=== PATIENT | male | born 1940 | race Caucasian/White ===

== ENCOUNTER 2016-10-22 06:12 | Observation (INO) | payer OTHER, MEDICARE ==
[~2016-10-22] VITALS: Ht 172.7 cm; Wt 98.4 kg
[2016-10-22 14:43] VITALS: BP 118/70
--- NOTE | 2016-10-22 14:45 | NUR ---
NURSING NOTE: PT ARRIVED TO FLOOR FROM PACU S/P R ROTATOR CUFF SURGERY, PT AWAKE, A/OX3, 2L NC DENIES DISTRESS. INSENTIVE SPIR GIVEN, PT DENIES PAIN. +CMS, SLING TO R ARM, DTV BY 1700PM. IVF PER MD ORDER. VITALS OBNTAIND AND STABLE. REPORT GIVEN TO NEXT SHIFT RN.
[2016-10-22 16:45] VITALS: BP 138/64
[2016-10-22] MEDS ORDERED: ASPIRIN EC81 M1 PO (17:05)
[2016-10-22] MEDS ORDERED: LIPITOR40 M1 PO (17:06)
[2016-10-22] MEDS ORDERED: OMEPRAZOLE20 M2 PO (17:06)
[2016-10-22] MEDS ORDERED: OCUVITE SOFTGE1 EACH PO (17:06)
[2016-10-22] MEDS ORDERED: ALTACE10 M2 PO (17:07)
[2016-10-22] MEDS ORDERED: ZETIA10 M1 PO (17:07)
[2016-10-22] MEDS ORDERED: B COMPLEX1 EACH PO (17:07)
[2016-10-22] MEDS ORDERED: DIALYVITE 8000.8 MG PO (17:08)
[2016-10-22] MEDS ORDERED: TOPROL XL100 M1 PO (17:08)
--- NOTE | 2016-10-22 17:15 | Admission Core Measures ---
Admission Meds I reviewed the following Meds: Current Medications Sig/Mimi Start time Last Medication Dose Stop Time Status Admin Aspirin 81 MG BID 10/22 2200 AC (Aspirin) Atorvastatin Calcium 40 MG QPM 10/22 2200 AC (Lipitor) Ezetimibe 10 MG DAILY 10/23 1000 AC (Zetia) Heparin Sodium 5,000 UNIT Q8 10/22 1400 AC (Porcine) Lisinopril 40 MG DAILY 10/23 1000 AC (Prinivil) Metoprolol Succinate 100 MG DAILY 10/23 1000 AC (Toprol Xl) Omeprazole 20 MG DAILY 10/23 1000 AC (Prilosec) Ondansetron HCl 4 MG Q6P PRN 10/22 1500 AC (Zofran) Tramadol HCl 50 MG Q6-PRN PRN 10/22 1500 AC (Ultram) Tramadol HCl 100 MG Q6P PRN 10/22 1500 AC (Ultram) Acute Coronary Syndrome Inclusion Criteria ACS Diagnosis No Inpatient Core Measures LDL Reminder: If No, please order W/I first 24hr of stay Congestive Heart Failure Inclusion Criteria CHF Diagnosis No Cerebrovascular accident Inclusion Criteria CVA/TIA Diagnosis No Inpatient Core Measures Bedside Swallow Eval Reminder: If BSE failed, place ST order Antithrombotic Reminder: Order Antithrombotic Medication by end of day 2 Antithrombotic Reminder: Document Reason Antithrombotic Not ordered by end of day 2 AFIB/Flutter Reminder: If Present, add to problem list AFIB/Flutter Reminder: Order Anticoag Medication for pts with AFIB/Flutter Atherosclerosis Reminder: If Present, add to problem list LDL Reminder: If No, please order W/I first 24hr of stay PT Order Reminder: If No, please order Venous thromboembolism Inpatient Core Measures VTE Risk Factors: Age > 40, Surgery No [facility] VTE prophylaxis d/t No contraindications No VTE Pharm Prophylaxis d/t No contraindications Inclusion Criteria - Per Current guidelines, there needs to be overlap - treatment for the first 5 days of Warfarin therapy. - Parenteral Anticoagulation (IV or SC) needs to be - given along with Warfarin therapy. VTE Diagnosis No VTE Type NONE VTE Confirmed by (Test) NONE Problem List As ranked by this Provider includes Assessment & Plan 1. Rotator cuff tear arthropathy of right shoulder HOME MEDS Home Med List Aspirin (Ecotrin*) 81 MG TABLET. 1 TAB PO DAILY HEART HEALTH (Reported) Atorvastatin Calcium (Lipitor) 40 MG TABLET 1 TAB PO QPM CHOLESTEROL ( Reported) Ezetimibe (Zetia) 10 MG TABLET 1 TAB PO DAILY CHOLESTEROL (Reported) Folic Acid/Vit Bcomp,C (Dialyvite 800 Tablet) 0.8 MG TABLET 1 TAB PO DAILY SUPPLEMENT (Reported) Metoprolol Succ XL (Toprol XL) 100 MG TAB.ER.24H 1 TAB PO DAILY HEART ( Reported) Omeprazole 20 MG CAPSULE.DR 1 CAP PO DAILY GI PROTECTION (Reported) Ramipril (Altace) 10 MG CAPSULE 1 CAP PO DAILY HYPERTENSION (Reported) Vit C/Vit E/Lutein/Min/[place]-3 (Ocuvite Softgel) 150 MG-30 UNIT-5 MG-150 MG CAPSULE 1 TAB PO DAILY VITAMIN SUPPLEMENT (Reported) Vitamin B Complex (B Complex) 1 EACH TABLET 1 TAB PO DAILY SUPPLEMENT ( Reported)
--- NOTE | 2016-10-22 17:24 | Patient Discharge Instructions ---
Discharge Instructions General Discharge Information You were seen/treated for: Right shoulder pain You had these procedures: Right shoulder arthroscopy with subacromial decompression and rotator cuff repair Watch for these problems: Increasing pain, redness, warmth, swelling. Drainage of any type from incisions. Inability to bear weight with right arm, numbness or tingling to right hand and arm. Fever greater than 101.5 Do not soak the wound: Yes No bath, but you may shower: Yes Other wound care: Keep wound clean and dry Special Instructions: Where shoulder immobilizer until otherwise indicated by Dr. Dixon, you may remove the shoulder immobilizer when in the shower. Diet Continue normal diet: Yes Recommended Diet: Heart Healthy Additional DIET Information: Advance as tolerated Activity Full Activity/No Limits: No Activity Self Limited: Yes Pounds, do NOT lift more than: 0 Additional ACTIVITY Info: Avoid lifting with right arm, please discuss any range of motion exercises with Dr. Dixon prior to beginning them. Acute Coronary Syndrome Inclusion Criteria At DC or during hospital stay patient has or had the following: ACS DIAGNOSIS No Discharge Core Measures Meds if any: Prescribed or Continued at Discharge Meds if any: NOT Prescribed or Continued at Discharge Congestive Heart Failure Inclusion Criteria At DC or during hospital stay patient has or had the following: CHF DIAGNOSIS No Discharge Core Measures Meds if any: Prescribed or Continued at Discharge Meds if any: NOT Prescribed or Continued at Discharge Cerebrovascular accident Inclusion Criteria At DC or during hospital stay patient has or had the following: CVA/TIA Diagnosis No Discharge Core Measures Meds if any: Prescribed or Continued at Discharge Meds if any: NOT Prescribed or Continued at Discharge Venous thromboembolism Inclusion Criteria VTE Diagnosis No VTE Type NONE VTE Confirmed by (Test) NONE Discharge Core Measures - Per Current guidelines, there needs to be overlap - treatment for the first 5 days of Warfarin therapy. - If discharged on Warfarin prior to 5 days of - overlap therapy, the patient will need to be - assessed for post discharge needs including - *Post discharge parental anticoagulation - *Warfarin and/or parental anticoagulation education - *Follow up date to check INR post discharge At least 5 days overlap therapy as Inpatient No Meds if any: Prescribed or Continued at Discharge Note: Overlap Therapy is Warfarin and Anticoagulant Meds if any: NOT Prescribed or Continued at Discharge
--- NOTE | 2016-10-22 17:30 | PN- Orthopedic ---
See Addendum Subjective Subjective: Patient received a general surgical floor status post right shoulder arthroscopy with repair of rotator cuff tear as well as a subacromial decompression. He tolerated the procedure well. Presently he is without discomfort. He specifically denies chest pain, shortness of breath, difficulty breathing. He denies nausea and vomiting. Objective Vital Signs and I&Os Vital Signs Date Time Temp Pulse Resp B/P Pulse O2 O2 Flow FiO2 Ox Delivery Rate 10/22 1445 95 Nasal 2.0L Cannula 10/22 1443 98.0 80 20 118/70 95 Nasal 2.0L Cannula Intake & Output 10/22 1600 10/22 0800 10/22 0000 10/21 1600 10/21 0800 10/21 0000 Intake Total Output Total 300 Balance -300 Output, Urine 300 Patient 217 lb Weight Physical Exam: General: Alert and oriented 3, no acute distress Cardiac: Regular rhythm and rate, systolic murmur auscultated Pulmonary: Bilateral lung sounds clear to auscultation Abdomen: Soft and nontender, nondistended, positive bowel sounds Extremities: Moves all extremities, distal sensations grossly intact. 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 Capillary refill brisk to all 5 fingers on right hand, palpable radial and ulnar pulses. Bilateral calves soft and nontender. Skin integrity: Swelling and abrasion noted above bilateral eyebrows, clinical correlation suggested its associated with positioning intraoperatively. Surgical site: Right shoulder dressing dry and intact. Shoulder immobilizer in place. Assessment/Plan Assessment/Plan This is a 75-year-old male postoperative day 0 status post right shoulder arthroscopy, subacromial decompression, rotator cuff repair. Past medical history is significant for coronary artery bypass surgery as well as hypertension, and hyperlipidemia. Patient has a known intolerance of Percocet, stating that the medication causes hallucinations. He will be hospitalized tonight for pain management with nonnarcotic medications. -Tramadol 50-100 mg every 6 hours when necessary pain, dosage not to exceed 300 mg in the 24 hour period -DVT prophylaxis to include subcutaneous heparin, baby aspirin twice daily, Alps , teds at discharge. -Antibiotic prophylaxis to include Ancef 2 g to be given every 8 hours 2 additional doses -Diet is heart healthy, advance as tolerated -Activity: No physical therapy needed for right upper extremity while in-house and patient may ambulate as desired, patient to be in shoulder immobilizer at all times. -Patient to continue all home meds, the only exception is increasing the frequency of his baby aspirin from once daily to twice daily -Anticipate discharge to home tomorrow morning -Will discuss with Dr. Dixon Core Measures/Miscellaneous Venous Thromboembolism VTE Risk Factors: Age > 40, Surgery VTE Contraindications: No Contraindications VTE Diagnosis: No Beta Mary Is Beta Mary a Home Med? Yes If Yes, Was This Ordered Today? Yes Antibiotics Is Patient on Antibiotics? Yes If Yes: prophylaxis
--- NOTE | 2016-10-22 17:33 | Discharge Summary ---
Visit Information Visit Dates Admission Date: 10/22/16 Discharge Date: 10/23/2016 Hospital Course Course Attending Physician: RUBIA DIXON MD Primary Care Physician: BECKY NO,[facility] Course: Patient was admitted to the hospital on October 22 2016 following an elective right shoulder arthroscopy with repair of rotator cuff, and subacromial decompression. He tolerated the procedure well. He was transferred to a general surgical floor. His diet was advanced and tolerated. His vital signs remained stable and within normal limits. He was able to void spontaneously. His pain was well controlled. He was deemed appropriate for discharge on postoperative day 1. Allergies: Coded Allergies: acetaminophen (From PERCOCET) (Intermediate, 10/15/16) oxycodone (From PERCOCET) (Intermediate, 10/15/16) NSAIDS (Non-Steroidal Anti-Inflamma (Intermediate, 10/15/16) Disposition Summary Disposition Principal Diagnosis: Right shoulder rotator cuff tear Additional Diagnosis: None Discharge Disposition: home or self care Discharge Instructions General Discharge Information Code Status: Full Code Patient's Diet: Heart healthy, advance as tolerated Patient's Activity: No lifting with right arm, shoulder immobilizer at all times except showering Follow-Up Instructions/Appts: Please contact Dr. Dixon's office to arrange and/or confirm follow-up appointments to be seen within 1-2 weeks postoperatively. Start taking the following new medications: Tramadol HCl (Tramadol HCl) 50 MG TABLET 1 Tablet ORAL EVERY SIX HOURS NEEDED as needed for PAIN Qty = 30 No Refills Comments: Last Taken:10/23/16 Time: 0930AM Aspirin (Ecotrin*) 81 MG TABLET. 1 Tablet ORAL TWICE DAILY Qty = 60 No Refills Comments: Last Taken:10/23/16 Time: 0900AM Medications at Discharge Discharge Medications: Stop taking the following medications: Aspirin (Ecotrin*) 81 MG TABLET. ORAL DAILY Continue taking these medications: Atorvastatin Calcium (Lipitor) 40 MG TABLET 1 Tablet ORAL Every night Comments: Last Taken:10/22/16 Time: 2100PM Vit C/Vit E/Lutein/Min/[place]-3 (Ocuvite Softgel) 150 MG-30 UNIT-5 MG-150 MG CAPSULE 1 Tablet ORAL DAILY Comments: NOT GIVEN IN HOSPITAL Omeprazole (Omeprazole) 20 MG CAPSULE. 1 Capsule ORAL DAILY Comments: Last Taken: 10/23/16 Time: 0900AM Ramipril (Altace) 10 MG CAPSULE 1 Capsule ORAL DAILY Comments: NOT GIVEN IN HOSPITAL Ezetimibe (Zetia) 10 MG TABLET 1 Tablet ORAL DAILY Comments: Last Taken: 10/23/16 Time: 0900AM Vitamin B Complex (B Complex) 1 EACH TABLET 1 Tablet ORAL DAILY Comments: NOT GIVEN IN HOSPITAL Folic Acid/Vit Bcomp,C (Dialyvite 800 Tablet) 0.8 MG TABLET 1 Tablet ORAL DAILY Comments: NOT GIVEN IN HOSPITAL Metoprolol Succ XL (Toprol XL) 100 MG TAB.ER.24H 1 Tablet ORAL DAILY Comments: Last Taken: 10/23/16 Time: 0900AM Start taking the following new medications: Tramadol HCl (Tramadol HCl) 50 MG TABLET 1 Tablet ORAL EVERY SIX HOURS NEEDED as needed for PAIN Qty = 30 No Refills Comments: Last Taken:10/23/16 Time: 0930AM Aspirin (Ecotrin*) 81 MG TABLET.DR 1 Tablet ORAL TWICE DAILY Qty = 60 No Refills Comments: Last Taken:10/23/16 Time: 0900AM Copies To: RUBIA DIXON MD Attending Review Statement Documenting Attending: RUBIA DIXON MD
[2016-10-22 18:59] VITALS: BP 146/66
[2016-10-22 22:29] VITALS: BP 128/84
[2016-10-23] MEDS ORDERED: TRAMADOL HCL50 M1 PO (07:23)
[2016-10-23 07:32] VITALS: BP 142/80
--- NOTE | 2016-10-23 07:34 | PN- Orthopedic ---
See Addendum Subjective Subjective: NAEO. Patient without c/o. States he has no pain at the moment. He has some mild tingling in his right fingers. Tolerating PO without n/v. Has not been OOB. Denies CP/SOB. Objective Vital Signs and I&Os Vital Signs Date Time Temp Pulse Resp B/P Pulse O2 O2 Flow FiO2 Ox Delivery Rate 10/23 0732 97.7 79 20 142/80 95 Nasal 2.0L Cannula 10/23 0000 Nasal 2.0L Cannula 10/22 2229 97.9 88 18 128/84 95 10/22 1859 98.2 95 20 146/66 94 10/22 1645 98.1 89 20 138/64 95 Nasal 2.0L Cannula 10/22 1600 Nasal 2.0L Cannula 10/22 1445 95 Nasal 2.0L Cannula 10/22 1443 98.0 80 20 118/70 95 Nasal 2.0L Cannula Intake & Output 10/23 0800 10/23 0000 10/22 1600 10/22 0800 10/22 0000 10/21 1600 Intake Total 1400 Output Total 850 300 Balance 550 -300 Intake, IV 600 Intake, Oral 800 Output, Urine 850 300 Patient 217 lb Weight Physical Exam: General: NAD, comfortable, A&Ox3 Chest: Good air movement, mild bilateral expiratory wheezes. RRR. Abdomen: soft, nontender, nondistended. Ext: Right shoulder dressing C/D/I. Right arm immobilizer in place. No calve swelling/TTP, neurovascularly intact bilateral lower extremities Current Medications: Current Medications Sig/Mimi Start time Last Medication Dose Route Stop Time Status Admin Aspirin 81 MG BID 10/22 2199 AC 10/22 PO 210 Atorvastatin Calcium 40 MG QPM 10/22 2200 AC 10/22 PO 210 Cefazolin Sodium 2 GM IQ8 10/22 1600 DC 10/23 N/A 1 UNIT IV 10/23 0029 0033 Cefazolin Sodium 2,000 MG ONCE 10/22 0000 DC IV 10/22 2359 Dextrose/Sodium 1,000 ML .[id number] 10/22 1500 AC 10/22 Chloride IV 2337 Ezetimibe 10 MG DAILY 10/23 1000 AC PO Heparin Sodium 5,000 UNIT Q8 10/22 1400 AC 10/23 (Porcine) SC 0639 Lisinopril 40 MG DAILY 10/23 1000 AC PO Metoprolol Succinate 100 MG DAILY 10/23 1000 AC PO Omeprazole 20 MG DAILY 10/23 1000 AC PO Ondansetron HCl 4 MG Q6P PRN 10/22 1500 AC IV Tramadol HCl 50 MG Q6-PRN PRN 10/22 1500 AC 10/22 PO 2109 Tramadol HCl 100 MG Q6P PRN 10/22 1500 AC PO Assessment/Plan Assessment/Plan 75yo M POD#1 s/p right rotator cuff repair. AVSS, patient stable and pain well controlled. - Pain control - OOB with PT, OT - NWB RUE - ALPS - DVT ppx - I/O's - DC if cleared by PT - Will d/w attending Core Measures/Miscellaneous Venous Thromboembolism VTE Risk Factors: Age > 40, Surgery VTE Contraindications: No Contraindications VTE Diagnosis: No VTE Type: NONE VTE Confirmed by (Test): NONE Beta Mary Is Beta Mary a Home Med? Yes If Yes, Was This Ordered Today? Yes Antibiotics Is Patient on Antibiotics? No
[2016-10-23] MEDS ORDERED: ASPIRIN EC81 M1 PO (08:01)
[2016-10-23 09:06] VITALS: BP 142/80
--- NOTE | 2016-10-23 11:20 | NUR ---
NURSING NOTE: PATIENT AMBULATED IN HALLWAY WITH PT ON ROOM AIR. PATIENT REPORTED SOB AT THE END OF THE WALK. RA SAT 89%, 1L NC PLACED. SAT 96%. ENCOURAGED USE OF IS. KENIA Elias AND AWARE. CONTINUE TO MONITOR.
--- NOTE | 2016-10-23 12:13 | NUR ---
NURSING NOTE: ROOM AIR WITH AMBUATION 90% AT THIS TIME, PT DENIES DISTRESS AND REQUESTING TO BE DICHARGED. BIANCA SCHULTZ CALLED AND AWARE, PAPERWORK IN PROGRESS.
--- NOTE | 2016-10-23 14:20 | Operative Report ---
Operative/Inv Procedure Report Surgery Date: 10/22/16 Name of Procedure: Right athroscopic rotator cuff repair, subacromial decomression, distal clavicle excision, and biceps tenotomy. Pre-Operative Diagnosis: Right rotator cuff tear, impingment, AC joint arthritis, and degenerative labral tearing. Post-Operative Diagnosis: Right rotator cuff tear, impingment, AC joint arthritis, and degenerative labral tearing. Estimated Blood Loss: less than 50ml Surgeon/Head Bucker: DANIELLA NO,RUBIA DIAZ MD, A.G. 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 He attempted conservative management with rest, corticosteroid injection, anti-inflammatories , and physical therapy but had persistent pain and decreased motion. An MRI revealed a supraspinatus tear and moderate atrophy of the muscle belly. We discussed operative intervention for rotator cuff repair, as well as subacromial decompression, distal clavicle excision, and possible biceps tenotomy vs tenodesis. Discussed with the patient the risk of non-healing given his age, the size of the tear, and the associated muscle atrophy. A dermal graft would be available to augment the repair if needed, and the patient was amenable to this. After discussing surgical vs non-surgical management, he has opted to proceed with arthroscopic right shoulder surgery. OPERATIVE REPORT: Rolando Oleary arrived at [facility] on 10/22/2016. He was met in the pre- operative area, where his right shoulder was marked and his past medical history was reviewed. A regional block was performed by the Anesthesia service. The patient was then taken to the operating room and placed supine on the OR table. A time-out procedure was performed, in which the patient, operative extremity, and procedure were verified. The patient was then induced under general anesthesia. Antibiotics (2g of ancef) were administered. The patient was then placed in the modified beach chair position. Care was taken to pad all bony prominences and support the head in a neutral position. The right upper extremity was then prepped with chloroprep (x2) and draped in the usual sterile fashion. The shoulder landmarks were identified. A standard posterior portal was created using a #11 blade scalpel. The camera was introduced into the glenohumeral joint. The patient noted to have superior labral fraying and degeneration, with the labral tissue subluxing inferiorly. An anterior portal was created after localization with a spinal needed. There was no significant glenohumeral arthritis and no loose bodies noted within the joint. The rotator cable was present superiorly, but not attachment of the supraspinatus on the humeral head. The subscapularis has fraying of the superior border where it contacted the biceps tendon, but was well-attached to the lesser tubosity. The biceps tendon itself has some fraying at the level of the subscapularis. Given these findings , the biceps tendon was released from the bicipital anchor. A shaver was introduced into the joint and used to gently debride the labrum. The camera was then taken into the subacromial space and an anterolateral portal created after localization with a spinal needle. There was thick, inflammed bursa in this area, which was thoroughly debrided with a combination of a shaver and VAPR device. The anterior edge of the acromion was viewed with only a slight downsloping acromion. The AC joint was also exposed, and noted to have a large inferior spur off the acromion. A high-speed maxime was introduced into the subacromial space and used to carefully decompress the undersurface of the acromion and the AC joint, notable the distal clavicle. This was done through the lateral and anterior portals. The camera was then introduced through the anterior portal to evaluate the AC joint after distal clavicel excision, and noted to adequately decompressed. The camera was then moved to the lateral portal and the cuff was examined. The supraspinatus was torn from the humeral footprint and retracted to the level of the humeral head. The was an intrasubstance tear of the anterior supraspinatus as well, creating a hole in the cuff tissue. The tissue itself was in good condition and mobilized back to the footprint with minimal tension. A PassPort cannula was placed. The midsubstance tear was gently debrided with a shaver to roughen the edges, and an Arthex scorpion was used to pass a #2-0 OrthoCord suture from side to side across the tear. One suture was placed medial and one suture was placed laterally. Both sutures were tied down and the sutures tails were cut, reapproximating the edges of the hole. A posterolateral portal was then created for additional viewing and working access to the shoulder. A stab incision was made just off the edge of the lateral acromion after localization with a spinal needle. Throught this small portal, an awl was introduced and used to place three medial row healix anchors. The arm was initially externally rotated for the anterior anchor. A 4.5mm anchor was initially placed, but pulled out when the sutures were tensioned. A 5.5mm anchor was then placed and showed stable fixation. Two additional 5.5mm anchors were placed along the medial row. We then passed sutures from posterior to anterior, using all horizontal mattress sutures with the exception of two simple sutures off the middle and posterior anchors. We then tied anterior to posterior. After the initial anterior mattress sutures were tied, the anchor was noted to be pistoning in the hole, and did not have good bony purchase. The middle and posterior sutures were tied with good purchase and approximation of the tendon back the footprint. With all sutures tied medially, the cuff was in good position without excess tension, but the anterior anchor remained loose in the awl hole. The sutures of the medial row were then divided and tensioned to two 6.5 Healix knotless anchors, one anterior and one posterior, on the lateral aspect of the footprint. The posterior anchor was initially placed and a combination of anterior and posterior sutures tensioned and secured. The arm with then externally rotated and the anterior anchor secured. The escape stitch from the posterior anchor was carefully passed through the anteiror cuff tissue, but posterior to the loose anchor, and tied for additional fixation. The arm was taken through a gentle range of motion and repair cuff did not move or loosen. The tenotomized biceps tendon was noted in the anterior shoulder, anterior and inferior to the anterior edge of the supraspinatus. At the conclusion of the procedure, all instruments were removed and any excess fluid was evacuated. The portals were closed with #3-0 Nylon suture and dressed with sterile xeroform, gauze, ABD pads, and secured with foam tape. The patient was repositioned on the OR table and extubated. His right arm was placed in a sling. The patient was then moved from the OR to the recovery room in stable condition.
== END 2016-10-23 12:44 ==
LOC: ENRESERVTM → ENRESERVDT → STS 06:12 → PACUH 12:35 → 2NB 12:35 → ENPENDDIS 12:35 → 2NB 14:50
PROVIDERS: ADMIT Orthopaedic Surgery Sports Medicine
DX: S43.421A Sprain of right rotator cuff capsule, initial encounter (principal); Y93.89 Activity, other specified; X50.9XXA Other and unspecified overexertion or strenuous movements or postures, initial encounter; M75.41 Impingement syndrome of right shoulder; M13.811 Other specified arthritis, right shoulder; I10 Essential (primary) hypertension; K21.9 Gastro-esophageal reflux disease without esophagitis; I25.2 Old myocardial infarction; Z95.1 Presence of aortocoronary bypass graft; Z79.82 Long term (current) use of aspirin
CPT/HCPCS: 1328; 1425; 1530; 1748; 97110-GO; 97116-GP; 97161-GP; 97165-GO; 97530-GP; G8978-GP; G8979-GP; G8980-GP; J0131; J0171; J0690; J1644; J2405; J3490; J7042; J7508